=== PATIENT | female | born 1955 | race Caucasian/White ===

== ENCOUNTER 2017-11-15 20:27 | Emergency (ER) | payer OTHER ==
[~2017-11-15] VITALS: Ht 165.1 cm; Wt 72.0 kg
[~2017-11-15 20:27] MED LIST: CIPR-9 PO; LISI-515 PO; TRAZ100T4 PO
[2017-11-15 20:34] VITALS: BP 149/89; PULSE 99; RESP 18; TEMP 98.6; O2SAT 97
[2017-11-15] MEDS ORDERED: MORPHINE SULFATE 2 MG/ML INJ IV PUSH ONE (20:45)
[2017-11-15] MEDS ORDERED: ONDANSETRON HCL 4 MG/2 ML VIAL IV PUSH ONE (20:45)
[2017-11-15 21:03] LABS: AUTOMATED NEUTROPHIL # 4.2 TH/MM3 (1.8-7.7); BASOPHIL % 0.4 % (0.0-2.0); EOSINOPHIL % 0.4 % (0.0-4.0); HEMATOCRIT 40.7 % (35.0-46.0); HEMOGLOBIN 13.9 GM/DL (11.6-15.3); LYMPH % 15.7 % (9.0-44.0); LYMPHOCYTE # 0.8 TH/MM3 (1.0-4.8); MEAN CELL VOLUME 87.7 FL (80.0-100.0); MEAN CORPUSCULAR HEMOGLOBIN 29.9 PG (27.0-34.0); MEAN CORPUSCULAR HGB CONC 34.2 % (32.0-36.0); MEAN PLATELET VOLUME 6.9 FL (7.0-11.0); MONO % 5.9 % (0.0-8.0); MONOCYTE # 0.3 TH/MM3 (0-0.9); NEUT % 77.6 % (16.0-70.0); PLATELET COUNT 397 TH/MM3 (150-450); RED BLOOD COUNT 4.65 MIL/MM3 (4.00-5.30); RED CELL DISTRIBUTION WIDTH 14.4 % (11.6-17.2); WHITE BLOOD COUNT 5.4 TH/MM3 (4.0-11.0)
[2017-11-15 21:22] LABS: PROTHROMBIN TIME - PATIENT 9.7 SEC (9.8-11.6)
[2017-11-15 21:27] LABS: BICARBONATE 21.9 MEQ/L (21.0-32.0); BLOOD UREA NITROGEN 9 MG/DL (7-18); CALCIUM 8.4 MG/DL (8.5-10.1); CHLORIDE 102 MEQ/L (98-107); CREATININE 0.68 MG/DL (0.50-1.00); GLOMERULAR FILTRATION RATE 88 ML/MIN (>89); GLUCOSE,RANDOM 145 MG/DL (74-106); MAGNESIUM 2.4 MG/DL (1.5-2.5); SODIUM (NA) 136 MEQ/L (136-145)
--- NOTE | 2017-11-15 21:29 | PD ---
HPI Chief Complaint: Fall Time Seen by Provider: 20:33 Travel History International Travel<30 days: No Contact w/Intl Traveler<30days: No Traveled to known affect area: No History of Present Illness HPI 62-year-old female that presents to the ED for evaluation of fall and syncope. Per patient she had a fall when she got home today. Per patient she tripped and fell. Per patient she possibly lost consciousness for about an hour. Unclear as to length of time but per patient she went to have some food and drinks with her friends and when she got home she tripped and fell. Nobody was at home to witness the fall. She herself called the ambulance. Per patient she has a headache as well as deformity to the right wrist. She denies any leg or hip pain. No abdominal pain or chest pain denies taking any blood thinners. History of hypertension. She hasn't been given anything for pain. Per patient injury occurred about 2 hours ago. She states having had a fracture to her hip in the past but not to her wrist. She does not follow with orthopedic doctor at this time. She last ate around 6 for dinner. Per patient she doesn' t usually drink but she had a beer at the [employer]" today. Denies any cuts or any other symptoms. She does state that she was nauseous when she got up and she threw up. PFSH Past Medical History Arthritis: Yes Cancer: No Cardiovascular Problems: Yes Diminished Hearing: No Endocrine: No Gastrointestinal Disorders: Yes (BARIATRIC SX) Genitourinary: No Hypertension: Yes Immune Disorder: No Implanted Vascular Access Dvce: No Musculoskeletal: Yes (RIGHT FEMUR FRACTURE) Neurologic: No Psychiatric: No Reproductive: No Respiratory: No Integumentary: Yes Immunizations Current: Yes Tetanus Vaccination: Unknown Influenza Vaccination: Yes Menopausal: Yes Past Surgical History Abdominal Surgery: No (appendix removed ) Cardiac Surgery: No Ear Surgery: No Endocrine Surgery: No Eye Surgery: No Gynecologic Surgery: Yes (D and C) Neurologic Surgery: No Thoracic Surgery: No Other Surgery: Yes Social History Alcohol Use: Yes (occasionally) Tobacco Use: No Substance Use: No (PT DENIES) Allergies-Medications (Allergen,Severity, Reaction): Coded Allergies: codeine (Unverified Allergy, Severe, Rash, 11/15/17) penicillin G (Unverified Allergy, Severe, 11/15/17) Reported Meds & Prescriptions Reported Meds & Active Scripts Active Reported Lisinopril 20 Mg Tab 20 Mg PO DAILY Review of Systems Except as stated in HPI: all other systems reviewed are Neg Physical Exam Narrative GENERAL: SKIN: Warm and dry. HEAD: Atraumatic. Normocephalic. EYES: Pupils equal and round. No scleral icterus. No injection or drainage. ENT: No nasal bleeding or discharge. Mucous membranes pink and moist. Tongue is midline. No uvula deviation. NECK: Trachea midline. No JVD. CARDIOVASCULAR: Regular rate and rhythm. No murmurs, S3, S4. RESPIRATORY: No accessory muscle use. Clear to auscultation. Breath sounds equal bilaterally. GASTROINTESTINAL: Abdomen soft, non-tender, nondistended. Hepatic and splenic margins not palpable. MUSCULOSKELETAL: Extremities without clubbing, cyanosis, or edema. No obvious deformities. Full range of motion of the upper and lower extremities bilaterally. 2+ pulses bilaterally. Patient has swelling and deformity to the right wrist. 2+ pulses bilaterally. Patient has a made up splint by EVAC on the wrist. No elbow or shoulder pain or deformity noted. No cervical, thoracic, lumbar spine tenderness to palpation. NEUROLOGICAL: Awake and alert. No obvious cranial nerve deficits. Motor grossly within normal limits. Five out of 5 muscle strength in the arms and legs. Normal speech. PSYCHIATRIC: Appropriate mood and affect; insight and judgment normal. Data Data Last Documented VS Vital Signs Date Time Temp Pulse Resp B/P (MAP) Pulse Ox O2 Delivery O2 Flow Rate FiO2 11/15/17 20:34 98.6 99 18 149/89 (109) 97 Orders Orders Electrocardiogram (11/15/17 20:33) Complete Blood Count With Diff (11/15/17 20:33) Basic Metabolic Panel (Bmp) (11/15/17 20:33) Ckmb (Isoenzyme) Profile (11/15/17 20:33) Troponin I (11/15/17 20:33) Prothrombin Time / Inr (Pt) (11/15/17 20:33) Act Partial Throm Time (Ptt) (11/15/17 20:33) Magnesium (Mg) (11/15/17 20:33) Thyroid Stimulating Hormone (11/15/17 20:33) Chest, Single Ap (11/15/17 20:33) Ct Brain W/O Iv Contrast(Rout) (11/15/17 20:33) Iv Access Insert/Monitor (11/15/17 20:33) Ecg Monitoring (11/15/17 20:33) Oximetry (11/15/17 20:33) Alcohol (Ethanol) (11/15/17 20:33) Wrist, Complete ([id number]) (11/15/17 20:33) Ice/Cold Pack (11/15/17 20:33) Morphine Inj (Morphine Inj) (11/15/17 20:45) Ondansetron Inj (Zofran Inj) (11/15/17 20:45) Forearm (2vws) (11/15/17 ) Splint Or Brace Apply/Monitor (11/15/17 21:36) Fiberglass Sugartong Sp Ad Arm (11/15/17 ) Sling Cradle Arm (11/15/17 ) Wrist, Limited (Ap&Lat) (11/15/17 ) Electrocardiogram (11/15/17 ) Hydromorphone Pf Inj (Dilaudid Pf Inj) (11/15/17 22:45) Labs Laboratory Tests Test 11/15/17 20:45 White Blood Count 5.4 TH/MM3 Red Blood Count 4.65 MIL/MM3 Hemoglobin 13.9 GM/DL Hematocrit 40.7 % Mean Corpuscular Volume 87.7 FL Mean Corpuscular Hemoglobin 29.9 PG Mean Corpuscular Hemoglobin Concent 34.2 % Red Cell Distribution Width 14.4 % Platelet Count 397 TH/MM3 Mean Platelet Volume 6.9 FL Neutrophils (%) (Auto) 77.6 % Lymphocytes (%) (Auto) 15.7 % Monocytes (%) (Auto) 5.9 % Eosinophils (%) (Auto) 0.4 % Basophils (%) (Auto) 0.4 % Neutrophils # (Auto) 4.2 TH/MM3 Lymphocytes # (Auto) 0.8 TH/MM3 Monocytes # (Auto) 0.3 TH/MM3 Eosinophils # (Auto) 0.0 TH/MM3 Basophils # (Auto) 0.0 TH/MM3 CBC Comment DIFF FINAL Differential Comment Prothrombin Time 9.7 SEC Prothromb Time International Ratio 1.0 RATIO Activated Partial Thromboplast Time 22.0 SEC Blood Urea Nitrogen 9 MG/DL Creatinine 0.68 MG/DL Random Glucose 145 MG/DL Calcium Level 8.4 MG/DL Magnesium Level 2.4 MG/DL Sodium Level 136 MEQ/L Potassium Level 3.3 MEQ/L Chloride Level 102 MEQ/L Carbon Dioxide Level 21.9 MEQ/L Anion Gap 12 MEQ/L Estimat Glomerular Filtration Rate 88 ML/MIN Total Creatine Kinase 79 U/L Troponin I LESS THAN 0.02 NG/ML Thyroid Stimulating Hormone 3rd Gen 2.230 uIU/ML Ethyl Alcohol Level 76 MG/DL MDM Medical Decision Making Medical Screen Exam Complete: Yes Emergency Medical Condition: Yes Medical Record Reviewed: Yes Interpretation(s) Last Impressions Wrist X-Ray 11/15/172032 Signed Impressions: Service Date/Time: Wednesday, November 15, 2017 21:18 - CONCLUSION: 1. Comminuted, impacted, dorsally angulated fracture of the distal right radius. Jose R Daly MD Head CT 11/15/172032 Signed Impressions: Service Date/Time: Wednesday, November 15, 2017 21:06 - CONCLUSION: 1. No acute intracranial abnormality identified. Jose R Daly MD Chest X-Ray 11/15/172032 Signed Impressions: Service Date/Time: Wednesday, November 15, 2017 21:15 - CONCLUSION: 1. Advanced the rectal lumbar scoliosis. 2. The lungs are clear. 3. No pneumothorax is evident. Jose R Daly MD Radius/Ulna X-Ray 11/15/17 0000 Signed Impressions: Service Date/Time: Wednesday, November 15, 2017 21:40 - CONCLUSION: 1. Impacted distal Colles' fracture. Jose R Daly MD CBC & BMP Diagram 11/15/17 20:45 Calcium Level 8.4 L, Magnesium Level 2.4 troponin and CKMB negative Differential Diagnosis Fracture versus head injury versus syncope versus ICH versus alcohol abuse versus presyncope Narrative Course 62-year-old female that presents to the ED for evaluation of fall. Patient was properly examined and was found to have signs and symptoms consistent appears to be followed syncope. Syncope appears to be secondary to the fall. Labs and imaging were ordered. Patient was given pain medication IV. Labs and imaging showed fracture of the right wrist Colles fracture otherwise unremarkable. Patient did have a slight abnormality in the EKG. My attending recommends doing a second troponin 3 hours later to see if there is any change. Case will be signed out to him pending EKG and disposition. Luiz Kang Nov 15, 2017 21:29
--- NOTE | 2017-11-15 21:31 | RADRPT ---
EXAM DATE/TIME: 11/15/2017 21:06 [facility] COMPARISON: CT BRAIN W/O CONTRAST, August 19, 2016, 15:59. INDICATIONS : Trauma; fall. RADIATION DOSE: 44.74 CTDIvol (mGy) MEDICAL HISTORY : Hypertension. Cardiovascular disease Hypertension. SURGICAL HISTORY : Gastric bypass. Appendectomy. ENCOUNTER: Initial ACUITY: 1 day PAIN SCALE: 5/10 LOCATION: cranial TECHNIQUE: Multiple contiguous axial images were obtained of the head. Using automated exposure control and adj ustment of the mA and/or kV according to patient size, radiation dose was kept as low as reasonably a chievable to obtain optimal diagnostic quality images. DICOM format image data is available electro nically for review and comparison. FINDINGS: CEREBRUM: The ventricles are normal for age. No evidence of midline shift, mass lesion, hemorrhage or acute in farction. No extra-axial fluid collections are seen. POSTERIOR FOSSA: The cerebellum and brainstem are intact. The 4th ventricle is midline. The cerebellopontine angle i s unremarkable. EXTRACRANIAL: The visualized portion of the orbits is intact. SKULL: The calvaria is intact. No evidence of skull fracture. CONCLUSION: 1. No acute intracranial abnormality identified. Jose R Daly MD on November 15, 2017 at 21:29 Board Certified Radiologist. This report was verified electronically.
[2017-11-15 21:38] LABS: TROPONIN I LESS THAN 0.02 NG/ML (0.02-0.05)
--- NOTE | 2017-11-15 21:41 | RADRPT ---
EXAM DATE/TIME: 11/15/2017 21:15 [facility] COMPARISON: HIP RIGHT (AP&LAT 2/3VWS) WO AP PELVIS, July 19, 2016, 12:29. INDICATIONS : Pain post fall. MEDICAL HISTORY : Hypertension. Cardiovascular disease SURGICAL HISTORY : None. ENCOUNTER: Initial ACUITY: 1 day PAIN SCORE: 1/10 LOCATION: Bilateral chest FINDINGS: There is a thoracolumbar scoliosis. The heart is normal in size. The lungs are clear. The hilar and mediastinal structures appear intact. CONCLUSION: 1. Advanced the rectal lumbar scoliosis. 2. The lungs are clear. 3. No pneumothorax is evident. Jose R Daly MD on November 15, 2017 at 21:39 Board Certified Radiologist. This report was verified electronically.
--- NOTE | 2017-11-15 21:43 | RADRPT ---
EXAM DATE/TIME: 11/15/2017 21:18 [facility] COMPARISON: CHEST SINGLE AP, November 15, 2017, 21:15. INDICATIONS : Right wrist pain post fall. MEDICAL HISTORY : None. SURGICAL HISTORY : None. ENCOUNTER: Initial ACUITY: 1 day PAIN SCORE: 10/10 LOCATION: Right wrist. FINDINGS: The examination demonstrates an impacted, dorsally angulated, comminuted fracture with intra-articula r extension involving the distal aspect of the right radius. The carpus is intact. CONCLUSION: 1. Comminuted, impacted, dorsally angulated fracture of the distal right radius. Jose R Daly MD on November 15, 2017 at 21:41 Board Certified Radiologist. This report was verified electronically.
--- NOTE | 2017-11-15 22:03 | RADRPT ---
EXAM DATE/TIME: 11/15/2017 21:40 [facility] COMPARISON: WRIST RIGHT COMPLETE (ABH1HBF), November 15, 2017, 21:18. INDICATIONS : Patient complains of right wrist pain status post fall. MEDICAL HISTORY : None. SURGICAL HISTORY : None. ENCOUNTER: Initial ACUITY: 1 day PAIN SCORE: 7/10 LOCATION: Right Forearm FINDINGS: The examination demonstrates an impacted, comminuted, dorsally angulated fracture involving the dista l right radius. The carpus is intact. The ulna is intact. CONCLUSION: 1. Impacted distal Colles' fracture. Jose R Daly MD on November 15, 2017 at 22:01 Board Certified Radiologist. This report was verified electronically.
--- NOTE | 2017-11-15 22:38 | RADRPT ---
EXAM DATE/TIME: 11/15/2017 22:17 [facility] COMPARISON: FOREARM RIGHT (2VWS), November 15, 2017, 21:40. INDICATIONS : Post reduction. MEDICAL HISTORY : None. SURGICAL HISTORY : None. ENCOUNTER: Subsequent ACUITY: 1 day PAIN SCORE: 10/10 LOCATION: Right wrist. FINDINGS: Single view of the right wrist in plaster demonstrates the patient's impacted Colles' fracture. Align ment is similar to previous examination. CONCLUSION: 1. Impacted Colles' fracture the distal radius. Jose R Daly MD on November 15, 2017 at 22:36 Board Certified Radiologist. This report was verified electronically.
[2017-11-15 22:39] VITALS: BP 139/97; PULSE 96; RESP 20; O2SAT 97
[2017-11-15] MEDS ORDERED: HYDROmorphone HCL PF 2 MG/ML VIAL IV PUSH ONE (22:45)
[2017-11-15] MEDS ORDERED: HYDROmorphone HCL PF 1 MG/ML VIAL IV PUSH ONE (23:30)
[2017-11-16 00:10] VITALS: BP 153/91; PULSE 85; RESP 20; O2SAT 97
[2017-11-16] MEDS ORDERED: HYDROmorphone HCL PF 2 MG/ML VIAL IV PUSH ONE (00:15)
[2017-11-16 01:01] VITALS: RESP 20
[2017-11-16] MEDS ORDERED: IBUP-232 PO (04:35)
[2017-11-16] MEDS ORDERED: TRAM50TA PO (04:35)
--- NOTE | 2017-11-16 04:35 | PD ---
Physical Exam Date Seen by Provider: Nov 15, 2017 Time Seen by Provider: 23:00 Narrative PT EKG AND TROP DONE TIMES 2 TO ASSURE NO CARDIAC INVOLVEMENT IN SHE FALL TONIGHT , PT SLEPT 8 HRS IN ed POST FALL AND ETOH OBSERVED THEN DISCHARGED WITH FOLLOW UP INSTRUCTIONS FOR ORTHO , SHE WAS PLACED IN SUGAR TONGS CAST SPLINT BY [employer] AND SLING TRAMADOL AND IBUPROFEN GIVEN rx DR BERNA KHALIL NAME AND NUMBER PLACED ON DISCHARGE PLACE Data Data Last Documented VS Vital Signs Date Time Temp Pulse Resp B/P (MAP) Pulse Ox O2 Delivery O2 Flow Rate FiO2 11/16/17 04:58 86 20 150/83 (105) 97 11/16/17 00:10 Room Air 11/15/17 20:34 98.6 Orders Orders Electrocardiogram (11/15/17 20:33) Complete Blood Count With Diff (11/15/17 20:33) Basic Metabolic Panel (Bmp) (11/15/17 20:33) Ckmb (Isoenzyme) Profile (11/15/17 20:33) Troponin I (11/15/17 20:33) Prothrombin Time / Inr (Pt) (11/15/17 20:33) Act Partial Throm Time (Ptt) (11/15/17 20:33) Magnesium (Mg) (11/15/17 20:33) Thyroid Stimulating Hormone (11/15/17 20:33) Chest, Single Ap (11/15/17 20:33) Ct Brain W/O Iv Contrast(Rout) (11/15/17 20:33) Iv Access Insert/Monitor (11/15/17 20:33) Ecg Monitoring (11/15/17 20:33) Oximetry (11/15/17 20:33) Alcohol (Ethanol) (11/15/17 20:33) Wrist, Complete (Oay5ngj) (11/15/17 20:33) Ice/Cold Pack (11/15/17 20:33) Morphine Inj (Morphine Inj) (11/15/17 20:45) Ondansetron Inj (Zofran Inj) (11/15/17 20:45) Forearm (2vws) (11/15/17 ) Splint Or Brace Apply/Monitor (11/15/17 21:36) Fiberglass Sugartong Sp Ad Arm (11/15/17 ) Sling Cradle Arm (11/15/17 ) Wrist, Limited (Ap&Lat) (11/15/17 ) Electrocardiogram (11/15/17 ) Hydromorphone Pf Inj (Dilaudid Pf Inj) (11/15/17 22:45) Hydromorphone Pf Inj (Dilaudid Pf Inj) (11/15/17 23:30) Hydromorphone Pf Inj (Dilaudid Pf Inj) (11/16/17 00:15) Troponin I (11/16/17 00:22) Hydromorphone (Dilaudid) (11/16/17 05:00) Labs Laboratory Tests Test 11/15/17 20:45 11/16/17 00:30 White Blood Count 5.4 TH/MM3 Red Blood Count 4.65 MIL/MM3 Hemoglobin 13.9 GM/DL Hematocrit 40.7 % Mean Corpuscular Volume 87.7 FL Mean Corpuscular Hemoglobin 29.9 PG Mean Corpuscular Hemoglobin Concent 34.2 % Red Cell Distribution Width 14.4 % Platelet Count 397 TH/MM3 Mean Platelet Volume 6.9 FL Neutrophils (%) (Auto) 77.6 % Lymphocytes (%) (Auto) 15.7 % Monocytes (%) (Auto) 5.9 % Eosinophils (%) (Auto) 0.4 % Basophils (%) (Auto) 0.4 % Neutrophils # (Auto) 4.2 TH/MM3 Lymphocytes # (Auto) 0.8 TH/MM3 Monocytes # (Auto) 0.3 TH/MM3 Eosinophils # (Auto) 0.0 TH/MM3 Basophils # (Auto) 0.0 TH/MM3 CBC Comment DIFF FINAL Differential Comment Prothrombin Time 9.7 SEC Prothromb Time International Ratio 1.0 RATIO Activated Partial Thromboplast Time 22.0 SEC Blood Urea Nitrogen 9 MG/DL Creatinine 0.68 MG/DL Random Glucose 145 MG/DL Calcium Level 8.4 MG/DL Magnesium Level 2.4 MG/DL Sodium Level 136 MEQ/L Potassium Level 3.3 MEQ/L Chloride Level 102 MEQ/L Carbon Dioxide Level 21.9 MEQ/L Anion Gap 12 MEQ/L Estimat Glomerular Filtration Rate 88 ML/MIN Total Creatine Kinase 79 U/L Troponin I LESS THAN 0.02 NG/ML LESS THAN 0.02 NG/ML Thyroid Stimulating Hormone 3rd Gen 2.230 uIU/ML Ethyl Alcohol Level 76 MG/DL [facility] Supervised Visit with LYNN: Yes Narrative Course pt given doctor berna adams and follow info for definitive care of colles fracture. pt aware and agrees with plan tramadol and ibuprofen for pain , Diagnosis Primary Impression: Wrist fracture, right Qualified Codes: S62.101A - Fracture of unspecified carpal bone, right wrist, initial encounter for closed fracture Referrals: Juan Manuel Dueñas MD Scripts Ibuprofen (Ibuprofen) 600 Mg Tab 600 MG PO Q6H Y for Pain/Inflammation, #40 TAB 0 Refills Prov: Ravindra Osorio MD 11/16/17 Tramadol (Tramadol) 50 Mg Tab 50 MG PO Q6H Y for PAIN, #15 TAB 0 Refills Prov: Ravindra Osorio MD 11/16/17 Disposition: 01 DISCHARGE HOME Condition: Good Ravindra Osorio MD Nov 16, 2017 04:35
[2017-11-16 04:58] VITALS: BP 150/83
[2017-11-16] MEDS ORDERED: HYDROmorphone HCL 2 MG TAB PO ONE (05:00)
--- NOTE | 2017-11-16 08:11 | EKG ---
Date Performed: 11/15/2017 Time Performed: 20:44:47 PTAGE: 62 years EKG: SINUS TACHYCARDIA WITH FREQUENT SUPRAVENTRICULAR PREMATURE COMPLEXES ST DEVIATION AND MODER ATE T-WAVE ABNORMALITY, CONSIDER ANTEROLATERAL ISCHEMIA Baseline artifact Compared to previous tracin g there are anterior T wave inversions concerning for anterior OR, age indeterminate Clinical correla tion is recommended ABNORMAL ECG PREVIOUS TRACING : 08/19/2016 15.55 DOCTOR: Megan Cuellar Interpretating Date/Time 11/16/2017 08:10:05
--- NOTE | 2017-11-16 19:38 | EKG ---
Date Performed: 11/15/2017 Time Performed: 23:16:44 PTAGE: 62 years EKG: Sinus rhythm WITH SINUS ARRHYTHMIA MODERATE T-WAVE ABNORMALITY, CONSIDER ANTEROLATERAL ISCHEMIA ABNORMAL ECG NO PREVIOUS TRACING DOCTOR: Megan Cuellar Interpretating Date/Time 11/16/2017 19:37:29
== END 2017-11-16 06:28 | disposition home or self-care (01) ==
LOC: NEPE 20:27
DX: S62.101A Fracture of unspecified carpal bone, right wrist, initial encounter for closed fracture (principal); R55 Syncope and collapse; R94.31 Abnormal electrocardiogram [ECG] [EKG]; R51 Headache; R11.0 Nausea; I10 Essential (primary) hypertension; W01.0XXA Fall on same level from slipping, tripping and stumbling without subsequent striking against object, initial encounter
CPT/HCPCS: 70450; 71045; 73090; 73100; 73110; 80048; 80307; 82550; 83735; 84443; 84484; 85025; 85610; 85730; 93005; 96374; 96375; 96376; 99285; J1170; J2270; J2405